=== PATIENT | male | born 1965 | race Caucasian/White ===

== ENCOUNTER 2016-07-26 09:26 | Outpatient (CLI) | payer OTHER | END 2016-07-26 09:27 | disposition home or self-care (01) | DX: E78.5 Hyperlipidemia, unspecified (principal); Z12.5 Encounter for screening for malignant neoplasm of prostate ==

== ENCOUNTER 2017-06-07 10:09 | Day surgery (SDC) | payer OTHER ==
[2017-06-07] MEDS ORDERED: LACTATED RINGERS 1,000 ML IV ONE (10:23)
[2017-06-07] MEDS ORDERED: MIDAZOLAM 2 MG/2 ML VIAL IVP ONE (11:57)
[2017-06-07] MEDS ORDERED: fentaNYL 100 MCG/2 ML VIAL IVP ONE (11:57)
[2017-06-07 12:39] VITALS: BP 123/67
== END 2017-06-07 10:10 | disposition home or self-care (01) ==
LOC: SDS 10:09
PROVIDERS: ATTEND Surgery
PROC: 0DBE8ZX Excision of Large Intestine, Via Natural or Artificial Opening Endoscopic, Diagnostic (ICD-10-PCS; principal; 2017-06-07 11:15)
DX: Z12.11 Encounter for screening for malignant neoplasm of colon (principal); D12.5 Benign neoplasm of sigmoid colon; K62.1 Rectal polyp
CPT/HCPCS: 45384; J7120

== ENCOUNTER 2020-06-16 08:00 | Outpatient (CLI) | payer OTHER | END 2020-06-16 23:59 | disposition home or self-care (01) | LOC: COV 08:00 | PROVIDERS: ATTEND Family Medicine | DX: Z20.828 Contact with and (suspected) exposure to other viral communicable diseases (principal) ==